=== PATIENT | male | born 1955 | race Two or more races ===

== ENCOUNTER 2024-12-24 07:13 | Outpatient (CLI) | payer MEDICARE ==
[2024-12-24 08:40] LABS: Hematocrit 47.6 % (41.0-53.0); Hemoglobin 16.1 g/dL (13.5-17.5); Mean Corpuscular Hemoglobin 32.3 pg (28.0-32.0); Mean Corpuscular Volume 95.5 fL (80.0-100.0); Nucleated Red Blood Cells % 0.2 %
[2024-12-24 08:54] LABS: Alanine Aminotransferase 27 U/L (7-40); Albumin 4.7 g/dL (3.2-4.8); Anion Gap 9 (5-15); BUN/Creatinine Ratio 15.5 (10.0-20.0); Blood Urea Nitrogen 15 mg/dL (9-23); Calcium 10.2 mg/dL (8.7-10.4); Carbon Dioxide 26 mmol/L (20-31); Chloride 106 mmol/L (98-107); Cholesterol 119 mg/dL (< 200); HDL Cholesterol 51 mg/dL (40-59); Potassium 4.6 mmol/L (3.5-5.1); Sodium 141 mmol/L (136-145); Total Protein 6.5 g/dL (5.7-8.2); Triglycerides 63 mg/dL (< 150); Urine Protein, UAD Negative (Negative)
[2024-12-24 08:55] LABS: Bilirubin, Total 0.4 mg/dL (0.2-1.0)
[2024-12-24 08:59] LABS: Alkaline Phosphatase 35 U/L (46-116); Glucose 120 mg/dL (74-106)
== END 2024-12-24 17:00 | disposition home or self-care (01) ==
LOC: LAB 07:13
PROVIDERS: ATTEND Nurse Practitioner
DX: I10 Essential (primary) hypertension (principal); E11.9 Type 2 diabetes mellitus without complications; E78.5 Hyperlipidemia, unspecified; R35.1 Nocturia
CPT/HCPCS: 36415; 80053; 80061; 81001; 83036; 84153; 84443; 85025